=== PATIENT | female | born 1980 | race Caucasian/White ===

== ENCOUNTER → 2021-08-17 | Outpatient (CLI) | payer BC | END | disposition home or self-care (01) | LOC: LABMAIN 11:53 | PROVIDERS: ATTEND Family Medicine | DX: U07.1 COVID-19 (principal) | CPT/HCPCS: 87635 ==

== ENCOUNTER → 2022-06-14 | Outpatient (CLI) | payer BC ==
--- NOTE | 2022-06-14 17:51 | MM ---
Reason for Exam: Screening (asymptomatic). Patient History: Menarche at age 13. Patient has no children. Premenopausal. Currently using Hormonal Contraceptives, starting at age 19. Last menstrual period: 05/12/2022 Risk Values: Shiloh 5 year model risk: 0.7%. NCI Lifetime model risk: 11.0%. Tissue Density: The breast tissue is heterogeneously dense. This may lower the sensitivity of mammography. Findings: Analyzed By CAD. Pattern appears symmetrical. No suspicious groups of microcalcifications, spiculated or lobular masses, architectural distortion or other secondary signs of malignancy are mammographically apparent. Overall Assessment: Benign, BI-RAD 2 Management: Screening Mammogram of both breasts in 1 year. A negative mammogram report should not preclude additional follow up of suspicious palpable abnormalities. Patient should continue monthly self breast exam. A clinical breast exam by your physician is recommended on an annual basis and results should be correlated with mammographic findings. Electronically signed and approved by: Herman Jones D.O. Radiologis
== END | disposition home or self-care (01) ==
LOC: RADMAMWWP 06:53
PROVIDERS: ATTEND Obstetrics & Gynecology
DX: Z12.31 Encounter for screening mammogram for malignant neoplasm of breast (principal)
CPT/HCPCS: 77063; 77067

== ENCOUNTER → 2023-10-18 | Outpatient (CLI) | payer BC ==
--- NOTE | 2023-10-19 08:19 | MM ---
Reason for Exam: Screening (asymptomatic). Last mammogram was performed 1 year(s) and 4 month(s) ago. Patient History: Menarche at age 13. Patient has no children. Premenopausal. Currently using Hormonal Contraceptives, starting at age 19. Last menstrual period: 10/16/2023 Risk Values: Shiloh 5 year model risk: 0.7%. NCI Lifetime model risk: 10.9%. Prior Study Comparison: 06/14/2022 Bilateral MG 3D screening mammo w/cad, [facility]. Tissue Density: The breasts are heterogeneously dense, which may obscure small masses. Findings: Analyzed By CAD. There is no suspicious group of microcalcifications or new suspicious mass in either breast. Benign-appearing calcifications. Overall Assessment: Benign, BI-RAD 2 Management: Screening Mammogram of both breasts in 1 year. . Patient should continue monthly self-breast exams. A clinical breast exam by your physician is recommended on an annual basis. This exam should not preclude additional follow-up of suspicious palpable abnormalities. Note on Shiloh scores and lifetime risk: 1. A Shiloh score greater than 3% is considered moderate risk. If this is the case, consider specialist referral to assess eligibility for a risk reducing agent. 2. If overall lifetime risk for the development of breast cancer is 20% or higher, the patient may qualify for future screening with alternating mammogram and breast MRI. Electronically signed and approved by: Federico Aguilera M.D. Radiologis
== END | disposition home or self-care (01) ==
LOC: RADMAMWWP 07:02
PROVIDERS: ATTEND Family Medicine
DX: Z12.31 Encounter for screening mammogram for malignant neoplasm of breast (principal); R92.333 Mammographic heterogeneous density, bilateral breasts
CPT/HCPCS: 77063; 77067

== ENCOUNTER → 2024-04-24 | Outpatient (CLI) | payer BC ==
--- NOTE | 2024-04-24 13:33 | XR ---
EXAMINATION TYPE: XR spine complete AP and Lat DATE OF EXAM: 04/24/2024 12:34 PM INDICATION: Patient age:Female; 43 years old; Reason for study: M54.16, M54.14, M54.16; [facility]. pain COMPARISON: None TECHNIQUE: Frontal, lateral, and odontoid views of the cervical spine were obtained. Frontal, lateral , and coned in L5-S1 lateral views of the lumbar spine were obtained. Frontal and lateral views were sure view of the thoracic spine. FINDINGS: No acute fracture or dislocation of the visualized spine. There is straightening of the normal cervic al lordosis which may be due to patient position versus muscle spasm. The odontoid appears intact. Sp inal listhesis. No vertebral body height loss identified. No significant degenerative disc disease id entified. The visualized portions of the lungs are clear. No abnormal calcifications. IMPRESSION: 1. No acute process. 2. No significant degenerative disc disease. [facility], , 04/24/2024 1:31 PM
== END | disposition home or self-care (01) ==
LOC: RADXRMAIN 12:11
PROVIDERS: ATTEND Nurse Practitioner Family
DX: M54.16 Radiculopathy, lumbar region (principal); M54.14 Radiculopathy, thoracic region; M54.12 Radiculopathy, cervical region
CPT/HCPCS: 72082

== ENCOUNTER → 2024-05-20 | Outpatient (CLI) | payer BC ==
--- NOTE | 2024-05-21 06:39 | US ---
EXAMINATION TYPE: US thyroid st tissue head/neck DATE OF EXAM: 05/20/2024 COMPARISON: NONE CLINICAL INDICATION: Female, 43 years old with history of R94.6 ABNORMAL RESULTS OF THYROID FUNCTION STUDIES; abnormal labs. On thyroid medication for a couple years TECHNIQUE: Grayscale and color Doppler imaging of the thyroid gland. FINDINGS: GLAND SIZE: Right Lobe: 4.6 x 1.3 x 1.1 cm Overall Parenchyma: heterogeneous Left Lobe: 4.2 x 1.6 x 1.1 cm Overall Parenchyma: heterogeneous Isthmus Thickness: 0.2 cm NODULES RIGHT: # of nodules measured on right: 0 LEFT: # of nodules measured on left: 0 ISTHMUS: # of nodules measured in the isthmus: 0 Bilateral neck scanned, no evidence of lymphadenopathy. Heterogeneous normal-sized thyroid without discrete nodule. IMPRESSION: As above 2017 ACR TI-RADS LEVEL: TI-RADS 1 - BENIGN: No FNA *Highest TI-RADS level nodule reported [email or web address] [facility], , 05/21/2024 6:37 AM
== END | disposition home or self-care (01) ==
LOC: RADUSWWP 15:40
PROVIDERS: ATTEND Family Medicine
DX: E04.2 Nontoxic multinodular goiter (principal); R94.6 Abnormal results of thyroid function studies
CPT/HCPCS: 76536

== ENCOUNTER → 2024-06-29 | Outpatient (CLI) | payer BC | END | disposition home or self-care (01) | LOC: LABWHC1 10:24 | PROVIDERS: ATTEND Nurse Practitioner Adult Health | DX: E28.2 Polycystic ovarian syndrome (principal); R73.03 Prediabetes; E55.9 Vitamin D deficiency, unspecified; D51.9 Vitamin B12 deficiency anemia, unspecified | CPT/HCPCS: 36415; 82306; 82607; 83036; 83525 ==